=== PATIENT | male | born 1980 | race Caucasian/White ===

== ENCOUNTER 2017-08-13 17:50 | Inpatient (IN) | payer OTHER ==
[2017-08-13] MEDS: METHYLPREDNISOLONE 125 MG INJ IV (18:04)
[2017-08-13 18:13] LABS: AADO2 Arterial 101.6 mmHg (7.0-24.0); Allen Test ACCEPTAB; Arterial Base Excess -6.8 mmol/L (-3.0-3); Arterial Blood Gas Oxygen Sat 99.3 mmHG (95.0-98.0); Arterial COHb 0.3 % (0.0-3.0); Arterial Fraction of Oxyhgb 98.7 % (93.0-99.0); Arterial HCO3 19.1 mmol/L (22.0-26.0); Arterial MetHb 0.3 % (0.0-1.5); Arterial pCO2 39.9 mmhg (35-45); Blood Gas IEPAP 15/5; Blood Gas PS 10; MODE MASK - BIPAP; Site Left Radial
[2017-08-13] MEDS: IPRATROPIUM (NEB) 0.5 MG/2.5 ML AMP INH (18:32)
[2017-08-13] MEDS: ALBUTEROL 0.5% (NEB) 2.5 MG/0.5 ML AMP INH (18:32)
[2017-08-13 18:49] LABS: ADD MAN DIFF? NO
[2017-08-13 18:54] LABS: WHITE BLOOD COUNT 7.8 10^3/ul (4.8-10.8)
[2017-08-13 18:54] LABS: BASOPHILS % 0.4 % (0.0-2.0); EOSINOPHILS # 0.1 10^3/ul (0.0-0.5); EOSINOPHILS % 0.6 % (0.0-7.0); HEMATOCRIT 39.9 % (42.0-52.0); HEMOGLOBIN 13.5 g/dl (14.0-18.0); LYMPHOCYTES # 3.3 10^3/ul (0.8-2.9); LYMPHOCYTES % 42.5 % (15.0-51.0); MEAN CORPUSCULAR HEMOGLOBIN 32.3 pg (29.0-33.0); MEAN CORPUSCULAR HGB CONC 33.8 g/dl (32.0-37.0); MEAN CORPUSCULAR VOLUME 95.5 fl (82.0-101.0); MEAN PLATELET VOLUME 12.1 fl (7.4-10.4); MONOCYTE # 0.7 10^3/ul (0.3-0.9); MONOCYTES % 9.4 % (0.0-11.0); NEUTROPHIL # 3.6 10^3/ul (1.6-7.5); NEUTROPHILS % 46.7 % (39.0-77.0); PLATELET COUNT 136 10^3/UL (140-415); RED BLOOD COUNT 4.18 10^6/ul (4.70-6.10); RED CELL DISTRIBUTION WIDTH 12.3 % (11.5-14.5)
[2017-08-13] MEDS: NITROGLYCERIN (SL) 0.4 MG TAB SL (18:57)
[2017-08-13] MEDS: SOD CHLORIDE 0.9% 1,000 ML IV ×2 (19:40→23:50)
[2017-08-13] MEDS: morphine 4 MG/ML VIAL IV (19:46)
[2017-08-13 20:12] LABS: ALANINE AMINOTRANSFERASE 50 IU/L (13-69); ALBUMIN 4.4 g/dl (3.3-4.9); ALBUMIN/GLOBULIN RATIO 1.33; ALKALINE PHOSPHATASE 99 IU/L (42-121); ANION GAP 18 (8-16); ASPARTATE AMINO TRANSFERASE 48 IU/L (15-46); BILIRUBIN,INDIRECT 0.4 mg/dl (0-1.1); BILIRUBIN,TOTAL 0.4 mg/dl (0.2-1.3); BLOOD UREA NITROGEN 19 mg/dl (7-20); CALCIUM 9.3 mg/dl (8.4-10.2); CARBON DIOXIDE 24 mmol/L (21-31); CHLORIDE 106 mmol/L (97-110); CREATININE 0.87 mg/dl (0.61-1.24); GLUCOSE 121 mg/dl (70-220); POTASSIUM 3.9 mmol/L (3.5-5.1); SODIUM 144 mmol/L (135-144); TOTAL PROTEIN 7.7 g/dl (6.1-8.1)
[2017-08-13 20:21] LABS: B-TYPE NATRIURETIC PEPTIDE 96 PG/ML (0-125)
[2017-08-13 20:26] LABS: LACTIC ACID 3.1 mmol/L (0.5-2.0)
[2017-08-13 20:26] LABS: TROPONIN-I 0.328 ng/ml (0.00-0.12)
[2017-08-13 20:32] LABS: INR 1.03; PARTIAL THROMBOPLASTIN TIME 23.4 Sec (25.0-35.0); PROTIME 13.6 Sec (11.9-14.9); PT RATIO 1.1
[2017-08-13] MEDS: NITROGLYCERIN 2% 1 GM OINT PKT TD (20:47)
[2017-08-13] MEDS: ASPIRIN 325 MG TAB PO (20:47)
[2017-08-13 21:04] LABS: D-DIMER 5993.19 ng/ml (<460)
[2017-08-13 21:43] LABS: LACTIC ACID 1.3 mmol/L (0.5-2.0)
[2017-08-13 21:56] LABS: CREATINE KINASE 167 IU/L (23-200)
[2017-08-13] MEDS ORDERED: HEPARIN 1000 UNITS/ML 10 ML INJ IV (22:00)
[2017-08-13] MEDS ORDERED: ACETAMINOPHEN 325 MG TAB PO (22:00)
[2017-08-13] MEDS ORDERED: ONDANSETRON 4 MG INJ IV ×2 (22:00→23:30)
[2017-08-13 22:06] LABS: CK INDEX 1.3
[2017-08-13 22:13] LABS: ADD MAN DIFF? NO
[2017-08-13 22:16] LABS: WHITE BLOOD COUNT 10.3 10^3/ul (4.8-10.8)
[2017-08-13 22:16] LABS: ABNORMAL IP MESSAGE 1; BASOPHILS % 0.1 % (0.0-2.0); HEMATOCRIT 36.5 % (42.0-52.0); HEMOGLOBIN 12.5 g/dl (14.0-18.0); LYMPHOCYTES # 0.5 10^3/ul (0.8-2.9); LYMPHOCYTES % 4.9 % (15.0-51.0); MEAN CORPUSCULAR HEMOGLOBIN 31.5 pg (29.0-33.0); MEAN CORPUSCULAR HGB CONC 34.2 g/dl (32.0-37.0); MEAN CORPUSCULAR VOLUME 91.9 fl (82.0-101.0); MEAN PLATELET VOLUME 11.8 fl (7.4-10.4); MONOCYTE # 0.2 10^3/ul (0.3-0.9); MONOCYTES % 1.8 % (0.0-11.0); NEUTROPHIL # 9.6 10^3/ul (1.6-7.5); PLATELET COUNT 124 10^3/UL (140-415); POSITIVE DIFF @See below; RED BLOOD COUNT 3.97 10^6/ul (4.70-6.10); RED CELL DISTRIBUTION WIDTH 12.1 % (11.5-14.5)
[2017-08-13] MEDS: HEPARIN 25000 UNITS/250 ML 250 ML IV (22:24)
[2017-08-13] MEDS: HEPARIN 1000 UNITS/ML 10 ML INJ IV (22:24)
[2017-08-13 22:26] LABS: TROPONIN-I 0.551 ng/ml (0.00-0.12)
[2017-08-13 22:29] LABS: PROTIME 13.3 Sec (11.9-14.9)
[2017-08-13 23:00] LABS: PARTIAL THROMBOPLASTIN TIME 21.1 Sec (25.0-35.0)
[2017-08-13 23:28] LABS: LACTIC ACID 1.2 mmol/L (0.5-2.0)
[2017-08-13] MEDS ORDERED: NACL 0.9% 3 ML SYG IV (23:30)
[2017-08-13] MEDS ORDERED: DOCUSATE SODIUM 100 MG CAP PO (23:30)
[2017-08-14 03:52] LABS: CREATINE KINASE 183 IU/L (23-200)
[2017-08-14 04:06] LABS: CK INDEX 2.1
[2017-08-14 04:12] LABS: CK-MB 3.92 ng/ml (0.0-2.4); TROPONIN-I 0.424 ng/ml (0.00-0.12)
[2017-08-14] MEDS: morphine 2 MG INJ IV (05:13)
[2017-08-14 05:38] LABS: INR 1.46; PT RATIO 1.4
[2017-08-14 06:03] LABS: HEMOGLOBIN A1C 5.4 % (0-5.9)
[2017-08-14 06:15] LABS: ADD MAN DIFF? NO
[2017-08-14 06:16] LABS: PARTIAL THROMBOPLASTIN TIME > 180.0 Sec (25.0-35.0)
[2017-08-14 06:19] LABS: WHITE BLOOD COUNT 6.7 10^3/ul (4.8-10.8)
[2017-08-14 06:19] LABS: HEMATOCRIT 36.1 % (42.0-52.0); HEMOGLOBIN 12.2 g/dl (14.0-18.0); LYMPHOCYTES # 0.7 10^3/ul (0.8-2.9); MEAN CORPUSCULAR HEMOGLOBIN 31.4 pg (29.0-33.0); MEAN CORPUSCULAR HGB CONC 33.8 g/dl (32.0-37.0); MEAN PLATELET VOLUME 12.4 fl (7.4-10.4); MONOCYTE # 0.2 10^3/ul (0.3-0.9); MONOCYTES % 2.3 % (0.0-11.0); NEUTROPHIL # 5.7 10^3/ul (1.6-7.5); NEUTROPHILS % 86.1 % (39.0-77.0); PLATELET COUNT 140 10^3/UL (140-415); RED BLOOD COUNT 3.88 10^6/ul (4.70-6.10); RED CELL DISTRIBUTION WIDTH 12.1 % (11.5-14.5)
[2017-08-14 06:45] LABS: ALANINE AMINOTRANSFERASE 51 IU/L (13-69); ALBUMIN 4.3 g/dl (3.3-4.9); ALKALINE PHOSPHATASE 87 IU/L (42-121); ANION GAP 19 (8-16); ASPARTATE AMINO TRANSFERASE 42 IU/L (15-46); BILIRUBIN,INDIRECT 0.3 mg/dl (0-1.1); BILIRUBIN,TOTAL 0.3 mg/dl (0.2-1.3); BLOOD UREA NITROGEN 20 mg/dl (7-20); CALCIUM 8.7 mg/dl (8.4-10.2); CARBON DIOXIDE 22 mmol/L (21-31); CHLORIDE 102 mmol/L (97-110); CHOL/HDL RATIO 3.6 RATIO; CHOLESTEROL 161 mg/dl (100-200); CREATININE 0.67 mg/dl (0.61-1.24); GLUCOSE 276 mg/dl (70-220); HDL CHOLESTEROL 44 mg/dl (28-63); LDL CHOLESTEROL,CALCULATED 108 mg/dl; MAGNESIUM 1.9 mg/dl (1.7-2.5); POTASSIUM 4.2 mmol/L (3.5-5.1); SODIUM 139 mmol/L (135-144); TOTAL PROTEIN 7.6 g/dl (6.1-8.1); TRIGLYCERIDES 47 mg/dl (0-149)
[2017-08-14 07:15] LABS: THYROID STIMULATING HORMONE 0.738 MIU/L (0.465-4.680)
[2017-08-14 08:25] LABS: CREATINE KINASE 212 IU/L (23-200)
[2017-08-14] MEDS: ASPIRIN 81 MG TAB PO (08:28)
[2017-08-14 08:36] LABS: CK INDEX 2.4
[2017-08-14 08:37] LABS: CK-MB 5.01 ng/ml (0.0-2.4); INR 1.08; PROTIME 14.1 Sec (11.9-14.9); PT RATIO 1.1; TROPONIN-I 0.306 ng/ml (0.00-0.12)
[2017-08-14 08:44] LABS: PARTIAL THROMBOPLASTIN TIME 77.3 Sec (25.0-35.0)
[2017-08-14 10:30] LABS: PARTIAL THROMBOPLASTIN TIME 69.3 Sec (25.0-35.0)
[2017-08-14 11:55] LABS: B-TYPE NATRIURETIC PEPTIDE 95 PG/ML (0-125)
[2017-08-14] MEDS: FUROSEMIDE 40 MG INJ IV (12:37)
[2017-08-14 16:18] LABS: INR 0.97
[2017-08-14 16:19] LABS: PARTIAL THROMBOPLASTIN TIME 47.7 Sec (25.0-35.0)
[2017-08-14] MEDS: HEPARIN 25000 UNITS/250 ML 250 ML IV (18:19)
[2017-08-14] MEDS: HEPARIN 1000 UNITS/ML 10 ML INJ IV (18:37)
[2017-08-14] MEDS: NITROGLYCERIN (SL) 0.4 MG TAB SL (20:57)
[2017-08-14] MEDS: TICAGRELOR 90 MG TABLET PO (21:00)
[2017-08-14] MEDS: ATORVASTATIN 40 MG TAB PO (21:00)
[2017-08-14 22:54] LABS: INR 1.08; PROTIME 14.1 Sec (11.9-14.9); PT RATIO 1.1
[2017-08-14] MEDS: HYDROmorphONE 0.5 MG/0.5 ML SYG IV (23:11)
[2017-08-14 23:42] LABS: PARTIAL THROMBOPLASTIN TIME > 180.0 Sec (25.0-35.0)
[2017-08-15 01:16] LABS: PARTIAL THROMBOPLASTIN TIME 130.4 Sec (25.0-35.0)
[2017-08-15 02:21] LABS: PARTIAL THROMBOPLASTIN TIME 65.7 Sec (25.0-35.0)
[2017-08-15] MEDS: HEPARIN 25000 UNITS/250 ML 250 ML IV ×3 (04:07→19:10)
[2017-08-15] MEDS: ASPIRIN 81 MG TAB PO (08:53)
[2017-08-15] MEDS: NITROGLYCERIN (SL) 0.4 MG TAB SL ×2 (08:54→20:51)
[2017-08-15] MEDS: TICAGRELOR 90 MG TABLET PO ×2 (08:57→20:03)
[2017-08-15] MEDS: morphine 2 MG INJ IV ×3 (09:00→23:08)
[2017-08-15 10:21] LABS: PARTIAL THROMBOPLASTIN TIME 46.2 Sec (25.0-35.0)
[2017-08-15] MEDS: HEPARIN 1000 UNITS/ML 10 ML INJ IV (10:45)
[2017-08-15] MEDS: LEVALBUTEROL (NEB) 1.25 MG/0.5 ML AMP HHN (11:16)
[2017-08-15] MEDS: FUROSEMIDE 40 MG INJ IV (17:51)
[2017-08-15] MEDS: ATORVASTATIN 40 MG TAB PO (20:01)
[2017-08-16 00:10] LABS: PARTIAL THROMBOPLASTIN TIME 63.8 Sec (25.0-35.0)
[2017-08-16 07:28] LABS: ADD MAN DIFF? NO
[2017-08-16 07:36] LABS: BASOPHILS % 0.2 % (0.0-2.0); EOSINOPHILS # 0.1 10^3/ul (0.0-0.5); EOSINOPHILS % 1.4 % (0.0-7.0); HEMATOCRIT 34.8 % (42.0-52.0); HEMOGLOBIN 11.9 g/dl (14.0-18.0); LYMPHOCYTES # 1.9 10^3/ul (0.8-2.9); LYMPHOCYTES % 32.8 % (15.0-51.0); MEAN CORPUSCULAR HEMOGLOBIN 31.3 pg (29.0-33.0); MEAN CORPUSCULAR HGB CONC 34.2 g/dl (32.0-37.0); MEAN CORPUSCULAR VOLUME 91.6 fl (82.0-101.0); MEAN PLATELET VOLUME 11.7 fl (7.4-10.4); MONOCYTE # 0.7 10^3/ul (0.3-0.9); MONOCYTES % 12.7 % (0.0-11.0); NEUTROPHIL # 3.1 10^3/ul (1.6-7.5); NEUTROPHILS % 52.6 % (39.0-77.0); PLATELET COUNT 140 10^3/UL (140-415); RED CELL DISTRIBUTION WIDTH 12.1 % (11.5-14.5)
[2017-08-16 07:36] LABS: WHITE BLOOD COUNT 5.8 10^3/ul (4.8-10.8)
[2017-08-16 07:51] LABS: ANION GAP 13 (8-16); BLOOD UREA NITROGEN 21 mg/dl (7-20); CALCIUM 8.8 mg/dl (8.4-10.2); CARBON DIOXIDE 29 mmol/L (21-31); CHLORIDE 101 mmol/L (97-110); CREATININE 0.76 mg/dl (0.61-1.24); GLUCOSE 103 mg/dl (70-220); MAGNESIUM 1.8 mg/dl (1.7-2.5); PHOSPHORUS 4.5 mg/dl (2.5-4.9); POTASSIUM 3.8 mmol/L (3.5-5.1); SODIUM 139 mmol/L (135-144)
[2017-08-16] MEDS: TICAGRELOR 90 MG TABLET PO (08:28)
[2017-08-16] MEDS: ASPIRIN 81 MG TAB PO (08:31)
[2017-08-16] MEDS: HEPARIN 25000 UNITS/250 ML 250 ML IV (08:31)
[2017-08-16] MEDS: morphine 2 MG INJ IV ×3 (08:32→17:25)
[2017-08-16] MEDS: LEVALBUTEROL (NEB) 1.25 MG/0.5 ML AMP HHN (14:53)
[2017-08-16 16:08] LABS: PARTIAL THROMBOPLASTIN TIME 80.6 Sec (25.0-35.0)
[2017-08-16] MEDS: FUROSEMIDE 20 MG INJ IV (16:36)
[2017-08-16] MEDS: APIXABAN 5 MG TABLET PO (20:10)
[2017-08-16] MEDS: ATORVASTATIN 40 MG TAB PO (20:10)
[2017-08-17] MEDS: morphine 2 MG INJ IV ×3 (00:21→20:23)
[2017-08-17 08:05] LABS: ADD MAN DIFF? NO
[2017-08-17 08:14] LABS: BASOPHILS % 0.4 % (0.0-2.0); EOSINOPHILS # 0.2 10^3/ul (0.0-0.5); EOSINOPHILS % 3.2 % (0.0-7.0); HEMATOCRIT 36.8 % (42.0-52.0); HEMOGLOBIN 12.6 g/dl (14.0-18.0); LYMPHOCYTES # 1.6 10^3/ul (0.8-2.9); LYMPHOCYTES % 27.9 % (15.0-51.0); MEAN CORPUSCULAR HEMOGLOBIN 31.7 pg (29.0-33.0); MEAN CORPUSCULAR HGB CONC 34.2 g/dl (32.0-37.0); MEAN CORPUSCULAR VOLUME 92.7 fl (82.0-101.0); MEAN PLATELET VOLUME 11.5 fl (7.4-10.4); MONOCYTE # 0.6 10^3/ul (0.3-0.9); MONOCYTES % 10.9 % (0.0-11.0); NEUTROPHIL # 3.3 10^3/ul (1.6-7.5); NEUTROPHILS % 57.1 % (39.0-77.0); PLATELET COUNT 158 10^3/UL (140-415); RED BLOOD COUNT 3.97 10^6/ul (4.70-6.10); RED CELL DISTRIBUTION WIDTH 11.8 % (11.5-14.5)
[2017-08-17 08:14] LABS: WHITE BLOOD COUNT 5.7 10^3/ul (4.8-10.8)
[2017-08-17] MEDS: APIXABAN 5 MG TABLET PO ×2 (08:46→20:22)
[2017-08-17] MEDS: ASPIRIN 81 MG TAB PO (08:47)
[2017-08-17 08:56] LABS: ANION GAP 13 (8-16); BLOOD UREA NITROGEN 19 mg/dl (7-20); CALCIUM 9.2 mg/dl (8.4-10.2); CARBON DIOXIDE 32 mmol/L (21-31); CHLORIDE 99 mmol/L (97-110); CREATININE 0.75 mg/dl (0.61-1.24); GLUCOSE 98 mg/dl (70-220); POTASSIUM 4.2 mmol/L (3.5-5.1); SODIUM 140 mmol/L (135-144)
[2017-08-17] MEDS: ATORVASTATIN 40 MG TAB PO (20:21)
[2017-08-18] MEDS: morphine 2 MG INJ IV ×3 (04:37→21:42)
[2017-08-18] MEDS: ASPIRIN 81 MG TAB PO (07:55)
[2017-08-18] MEDS: APIXABAN 5 MG TABLET PO ×2 (07:57→22:54)
[2017-08-18] MEDS: ATORVASTATIN 40 MG TAB PO (22:54)
[2017-08-19] MEDS: morphine 2 MG INJ IV ×4 (01:47→21:20)
[2017-08-19] MEDS: APIXABAN 5 MG TABLET PO ×2 (08:26→21:19)
[2017-08-19] MEDS: ASPIRIN 81 MG TAB PO (08:26)
[2017-08-19] MEDS: ATORVASTATIN 40 MG TAB PO (21:16)
[2017-08-20] MEDS: morphine 2 MG INJ IV ×3 (07:29→18:46)
[2017-08-20] MEDS: ASPIRIN 81 MG TAB PO (09:03)
[2017-08-20] MEDS: APIXABAN 5 MG TABLET PO ×2 (09:03→20:46)
[2017-08-20] MEDS: SODIUM CHLORIDE 0.45% 500 ML BAG IV* (18:51)
[2017-08-20] MEDS: ATORVASTATIN 40 MG TAB PO (20:48)
[2017-08-21] MEDS: morphine 2 MG INJ IV ×4 (00:09→21:27)
[2017-08-21 07:02] LABS: ANION GAP 15 (8-16); BLOOD UREA NITROGEN 18 mg/dl (7-20); CALCIUM 9.3 mg/dl (8.4-10.2); CARBON DIOXIDE 29 mmol/L (21-31); CHLORIDE 100 mmol/L (97-110); CREATININE 0.73 mg/dl (0.61-1.24); GLUCOSE 104 mg/dl (70-220); SODIUM 140 mmol/L (135-144)
[2017-08-21] MEDS: ASPIRIN 81 MG TAB PO (08:22)
[2017-08-21] MEDS: APIXABAN 5 MG TABLET PO ×2 (08:22→20:19)
[2017-08-21] MEDS: ACETAMINOPHEN 325 MG TAB PO (18:26)
[2017-08-21] MEDS: ATORVASTATIN 40 MG TAB PO (20:19)
[2017-08-21] MEDS: BISACODYL (EC) 5 MG TAB PO (20:20)
[2017-08-22] MEDS: morphine 2 MG INJ IV ×2 (04:35→11:15)
[2017-08-22 08:25] LABS: ANION GAP 16 (8-16); BLOOD UREA NITROGEN 17 mg/dl (7-20); CALCIUM 9.4 mg/dl (8.4-10.2); CARBON DIOXIDE 30 mmol/L (21-31); CHLORIDE 99 mmol/L (97-110); CREATININE 0.73 mg/dl (0.61-1.24); GLUCOSE 102 mg/dl (70-220); POTASSIUM 4.1 mmol/L (3.5-5.1); SODIUM 141 mmol/L (135-144)
[2017-08-22] MEDS: ASPIRIN 81 MG TAB PO (08:50)
[2017-08-22] MEDS: APIXABAN 5 MG TABLET PO ×2 (08:50→20:57)
[2017-08-22] MEDS: HYDROCODONE/APAP (5/325) TAB PO ×2 (18:34→22:16)
[2017-08-22] MEDS: ATORVASTATIN 40 MG TAB PO (20:57)
[2017-08-23] MEDS: ASPIRIN 81 MG TAB PO (08:46)
[2017-08-23] MEDS: APIXABAN 5 MG TABLET PO (08:46)
[2017-08-23] MEDS: HYDROCODONE/APAP (5/325) TAB PO (09:55)
== END 2017-08-23 13:05 | disposition home or self-care (01) | DRG 280 ==
LOC: E/R 17:50 → TEL 21:44
DX: I21.A1 Myocardial infarction type 2 (principal); I26.99 Other pulmonary embolism without acute cor pulmonale; J96.02 Acute respiratory failure with hypercapnia; Z68.44 Body mass index [BMI] 60.0-69.9, adult; E87.2 Acidosis; J81.1 Chronic pulmonary edema; E66.01 Morbid (severe) obesity due to excess calories; R06.00 Dyspnea, unspecified; I10 Essential (primary) hypertension; G47.33 Obstructive sleep apnea (adult) (pediatric); R53.81 Other malaise; R34 Anuria and oliguria; R79.1 Abnormal coagulation profile; Z71.3 Dietary counseling and surveillance
CPT/HCPCS: 36415; 36600; 71045; 76775; 80048; 80053; 80061; 82550; 82553; 82803; 83036; 83605; 83735; 83880; 84100; 84443; 84484; 85025; 85378; 85610; 85730; 87040; 93005; 93306; 93970; 94640; 94660; 94664; 96374; 96375; 96376; 97110; 97162; 97530; 99291-25

== ENCOUNTER 2018-02-06 16:59 | Inpatient (IN) | payer OTHER ==
[2018-02-06 17:24] LABS: ADD MAN DIFF? NO
[2018-02-06 17:27] LABS: WHITE BLOOD COUNT 5.7 10^3/ul (4.8-10.8)
[2018-02-06 17:27] LABS: BASOPHILS % 0.2 % (0.0-2.0); EOSINOPHILS % 0.5 % (0.0-7.0); HEMATOCRIT 38.4 % (42.0-52.0); HEMOGLOBIN 13.2 g/dl (14.0-18.0); LYMPHOCYTES # 2.2 10^3/ul (0.8-2.9); MEAN CORPUSCULAR HEMOGLOBIN 31.7 pg (29.0-33.0); MEAN CORPUSCULAR HGB CONC 34.4 g/dl (32.0-37.0); MEAN CORPUSCULAR VOLUME 92.3 fl (82.0-101.0); MEAN PLATELET VOLUME 12.3 fl (7.4-10.4); MONOCYTE # 0.7 10^3/ul (0.3-0.9); MONOCYTES % 11.4 % (0.0-11.0); NEUTROPHIL # 2.8 10^3/ul (1.6-7.5); NEUTROPHILS % 49.7 % (39.0-77.0); PLATELET COUNT 207 10^3/UL (140-415); RED BLOOD COUNT 4.16 10^6/ul (4.70-6.10); RED CELL DISTRIBUTION WIDTH 12.2 % (11.5-14.5)
[2018-02-06] MEDS: ASPIRIN 81 MG TAB PO (17:45)
[2018-02-06 17:48] LABS: INR 0.93; PROTIME 12.5 Sec (11.9-14.9)
[2018-02-06 17:56] LABS: ANION GAP 14 (8-16); BLOOD UREA NITROGEN 23 mg/dl (7-20); CALCIUM 9.8 mg/dl (8.4-10.2); CARBON DIOXIDE 22 mmol/L (21-31); CHLORIDE 107 mmol/L (97-110); D-DIMER 500.67 ng/ml (<460); GLUCOSE 109 mg/dl (70-220); POTASSIUM 3.8 mmol/L (3.5-5.1); SODIUM 139 mmol/L (135-144)
[2018-02-06 18:08] LABS: B-TYPE NATRIURETIC PEPTIDE 108 PG/ML (0-125); TROPONIN-I < 0.012 ng/ml (0.000-0.120)
[2018-02-06] MEDS: morphine 4 MG/ML VIAL IV (18:32)
[2018-02-06] MEDS ORDERED: ACETAMINOPHEN 325 MG TAB PO (20:00)
[2018-02-06] MEDS ORDERED: NACL 0.9% 3 ML SYG IV (20:00)
[2018-02-06] MEDS ORDERED: DOCUSATE SODIUM 100 MG CAP PO (20:00)
[2018-02-06] MEDS ORDERED: ONDANSETRON 4 MG INJ IV (20:00)
[2018-02-06] MEDS ORDERED: BISACODYL (EC) 5 MG TAB PO (20:00)
[2018-02-06] MEDS: LISINOPRIL 20 MG TAB PO (21:06)
[2018-02-06] MEDS: FUROSEMIDE 40 MG INJ IV (21:06)
[2018-02-06] MEDS: ATORVASTATIN 40 MG TAB PO (21:06)
[2018-02-06] MEDS: morphine 2 MG INJ IV (21:07)
[2018-02-06] MEDS ORDERED: LORAZEPAM 2 MG INJ IV ×2 (22:30)
[2018-02-06 23:34] LABS: CREATINE KINASE 75 IU/L (23-200)
[2018-02-06 23:47] LABS: CK INDEX 0.7; CK-MB 0.49 ng/ml (0.0-2.4); TROPONIN-I < 0.012 ng/ml (0.000-0.120)
[2018-02-07] MEDS: NITROGLYCERIN (SL) 0.4 MG TAB SL ×5 (00:39→11:53)
[2018-02-07] MEDS: morphine 4 MG/ML VIAL IV ×2 (00:58→01:05)
[2018-02-07] MEDS ORDERED: HYDROmorphONE 0.5 MG/0.5 ML SYG IV (01:05)
[2018-02-07] MEDS: HYDROmorphONE 1 MG/ML SYG IV ×4 (01:32→16:25)
[2018-02-07] MEDS: ENOXAPARIN 100 MG/ML SYG SC ×2 (03:25→15:38)
[2018-02-07 06:08] LABS: ADD MAN DIFF? NO
[2018-02-07 06:15] LABS: BASOPHILS % 0.4 % (0.0-2.0); EOSINOPHILS # 0.1 10^3/ul (0.0-0.5); EOSINOPHILS % 1.6 % (0.0-7.0); HEMATOCRIT 37.2 % (42.0-52.0); HEMOGLOBIN 12.4 g/dl (14.0-18.0); LYMPHOCYTES # 2.1 10^3/ul (0.8-2.9); LYMPHOCYTES % 40.3 % (15.0-51.0); MEAN CORPUSCULAR HEMOGLOBIN 31.6 pg (29.0-33.0); MEAN CORPUSCULAR HGB CONC 33.3 g/dl (32.0-37.0); MEAN CORPUSCULAR VOLUME 94.7 fl (82.0-101.0); MEAN PLATELET VOLUME 12.7 fl (7.4-10.4); MONOCYTE # 0.6 10^3/ul (0.3-0.9); MONOCYTES % 11.2 % (0.0-11.0); NEUTROPHIL # 2.4 10^3/ul (1.6-7.5); NEUTROPHILS % 46.5 % (39.0-77.0); PLATELET COUNT 178 10^3/UL (140-415); RED BLOOD COUNT 3.93 10^6/ul (4.70-6.10); RED CELL DISTRIBUTION WIDTH 12.4 % (11.5-14.5)
[2018-02-07 06:15] LABS: WHITE BLOOD COUNT 5.2 10^3/ul (4.8-10.8)
[2018-02-07 06:43] LABS: ALANINE AMINOTRANSFERASE 51 IU/L (13-69); ALBUMIN 3.3 g/dl (3.3-4.9); ALBUMIN/GLOBULIN RATIO 1.13; ALKALINE PHOSPHATASE 70 IU/L (42-121); ANION GAP 13 (8-16); ASPARTATE AMINO TRANSFERASE 36 IU/L (15-46); BLOOD UREA NITROGEN 22 mg/dl (7-20); CALCIUM 9.2 mg/dl (8.4-10.2); CARBON DIOXIDE 27 mmol/L (21-31); CHLORIDE 104 mmol/L (97-110); CHOLESTEROL 139 mg/dl (100-200); CREATININE 0.86 mg/dl (0.61-1.24); GLUCOSE 102 mg/dl (70-220); HDL CHOLESTEROL 34 mg/dl (28-63); LDL CHOLESTEROL,CALCULATED 87 mg/dl; MAGNESIUM 2.1 mg/dl (1.7-2.5); POTASSIUM 3.6 mmol/L (3.5-5.1); SODIUM 140 mmol/L (135-144); TOTAL PROTEIN 6.2 g/dl (6.1-8.1); TRIGLYCERIDES 90 mg/dl (0-149)
[2018-02-07 06:44] LABS: CK-MB 0.42 ng/ml (0.0-2.4); TROPONIN-I < 0.012 ng/ml (0.000-0.120)
[2018-02-07 07:02] LABS: CK INDEX 0.7; CREATINE KINASE 63 IU/L (23-200)
[2018-02-07] MEDS: LISINOPRIL 20 MG TAB PO ×2 (08:34→20:14)
[2018-02-07] MEDS: morphine 2 MG INJ IV (13:34)
[2018-02-07] MEDS: ALBUTEROL/IPRATROPIUM (NEB) 3 ML AMP HHN ×2 (13:43→20:10)
[2018-02-07 14:00] LABS: HEMOGLOBIN A1C 5.3 % (0-5.9)
[2018-02-07] MEDS: FUROSEMIDE 40 MG INJ IV (16:26)
[2018-02-07] MEDS: ATORVASTATIN 40 MG TAB PO (20:13)
[2018-02-07] MEDS: ACETAMINOPHEN 325 MG TAB PO (20:13)
[2018-02-07] MEDS: morphine LIQ (10 MG/5 ML) CUP PO (20:46)
[2018-02-08] MEDS: HYDROmorphONE 2 MG TAB PO ×4 (00:35→23:00)
[2018-02-08] MEDS: CYCLOBENZAPRINE 10 MG TAB PO (01:09)
[2018-02-08] MEDS: ONDANSETRON 4 MG TAB PO (01:09)
[2018-02-08] MEDS: ALBUTEROL/IPRATROPIUM (NEB) 3 ML AMP HHN ×4 (01:50→19:27)
[2018-02-08] MEDS: ENOXAPARIN 100 MG/ML SYG SC ×2 (02:24→14:47)
[2018-02-08 07:00] LABS: ANION GAP 13 (8-16); BLOOD UREA NITROGEN 22 mg/dl (7-20); CARBON DIOXIDE 28 mmol/L (21-31); CHLORIDE 101 mmol/L (97-110); CREATININE 0.87 mg/dl (0.61-1.24); GLUCOSE 97 mg/dl (70-220); POTASSIUM 3.5 mmol/L (3.5-5.1); SODIUM 138 mmol/L (135-144)
[2018-02-08] MEDS: morphine LIQ (10 MG/5 ML) CUP PO ×3 (09:32→20:11)
[2018-02-08] MEDS: FUROSEMIDE 40 MG INJ IV (09:35)
[2018-02-08] MEDS: LISINOPRIL 20 MG TAB PO ×2 (09:35→20:10)
[2018-02-08] MEDS: ATORVASTATIN 40 MG TAB PO (20:10)
[2018-02-09] MEDS: morphine LIQ (10 MG/5 ML) CUP PO ×4 (02:25→20:01)
[2018-02-09] MEDS: CYCLOBENZAPRINE 10 MG TAB PO (02:28)
[2018-02-09] MEDS: ENOXAPARIN 100 MG/ML SYG SC ×2 (02:33→14:56)
[2018-02-09] MEDS: ALBUTEROL/IPRATROPIUM (NEB) 3 ML AMP HHN ×4 (02:35→19:55)
[2018-02-09] MEDS: LISINOPRIL 20 MG TAB PO ×2 (08:01→20:02)
[2018-02-09] MEDS: FUROSEMIDE 40 MG INJ IV (08:02)
[2018-02-09] MEDS: HYDROmorphONE 2 MG TAB PO (11:43)
[2018-02-09] MEDS: GABAPENTIN 100 MG CAP PO ×2 (17:25→20:01)
[2018-02-09] MEDS: ATORVASTATIN 40 MG TAB PO (20:01)
[2018-02-10] MEDS: ALBUTEROL/IPRATROPIUM (NEB) 3 ML AMP HHN ×3 (01:55→15:01)
[2018-02-10] MEDS: morphine LIQ (10 MG/5 ML) CUP PO ×2 (02:23→06:38)
[2018-02-10] MEDS: ENOXAPARIN 100 MG/ML SYG SC (02:36)
[2018-02-10] MEDS: GABAPENTIN 100 MG CAP PO ×2 (09:18→12:58)
[2018-02-10] MEDS: LISINOPRIL 20 MG TAB PO (09:19)
[2018-02-10] MEDS: FUROSEMIDE 40 MG INJ IV (09:19)
[2018-02-10 09:36] LABS: TROPONIN-I < 0.012 ng/ml (0.000-0.120)
[2018-02-10] MEDS: ACETAMINOPHEN 325 MG TAB PO (10:28)
== END 2018-02-10 15:40 | disposition home or self-care (01) | DRG 292 ==
LOC: E/R 16:59 → MS1 02-09 22:04 → TEL 19:52
DX: I11.0 Hypertensive heart disease with heart failure (principal); Z68.45 Body mass index [BMI] 70 or greater, adult; I50.33 Acute on chronic diastolic (congestive) heart failure; E66.01 Morbid (severe) obesity due to excess calories; Z71.3 Dietary counseling and surveillance; E78.5 Hyperlipidemia, unspecified; I25.10 Atherosclerotic heart disease of native coronary artery without angina pectoris; I25.2 Old myocardial infarction; G43.909 Migraine, unspecified, not intractable, without status migrainosus; Z86.711 Personal history of pulmonary embolism
CPT/HCPCS: 36415; 71045; 80048; 80053; 80061; 82550; 82553; 83036; 83735; 83880; 84443; 84484; 85025; 85378; 85610; 93005; 93306; 93970; 94640; 94664; 96374; 97162; 99285-25

== ENCOUNTER 2018-06-04 00:06 | Emergency (ER) | payer OTHER ==
[2018-06-04 01:03] LABS: ADD MAN DIFF? NO
[2018-06-04] MEDS: KETOROLAC 15 MG INJ IV (01:05)
[2018-06-04 01:06] LABS: WHITE BLOOD COUNT 4.9 10^3/ul (4.8-10.8)
[2018-06-04 01:06] LABS: BASOPHILS % 0.4 % (0.0-2.0); EOSINOPHILS # 0.1 10^3/ul (0.0-0.5); EOSINOPHILS % 1.8 % (0.0-7.0); HEMATOCRIT 41.2 % (42.0-52.0); HEMOGLOBIN 13.8 g/dl (14.0-18.0); LYMPHOCYTES # 1.9 10^3/ul (0.8-2.9); LYMPHOCYTES % 38.8 % (15.0-51.0); MEAN CORPUSCULAR HEMOGLOBIN 31.1 pg (29.0-33.0); MEAN CORPUSCULAR HGB CONC 33.5 g/dl (32.0-37.0); MEAN CORPUSCULAR VOLUME 92.8 fl (82.0-101.0); MEAN PLATELET VOLUME 11.7 fl (7.4-10.4); MONOCYTE # 0.5 10^3/ul (0.3-0.9); MONOCYTES % 10.5 % (0.0-11.0); NEUTROPHIL # 2.4 10^3/ul (1.6-7.5); NEUTROPHILS % 48.3 % (39.0-77.0); PLATELET COUNT 197 10^3/UL (140-415); RED BLOOD COUNT 4.44 10^6/ul (4.70-6.10); RED CELL DISTRIBUTION WIDTH 11.9 % (11.5-14.5)
[2018-06-04 01:12] LABS: ALANINE AMINOTRANSFERASE 28 IU/L (13-69); ALBUMIN 4.6 g/dl (3.3-4.9); ALBUMIN/GLOBULIN RATIO 1.27; ALKALINE PHOSPHATASE 104 IU/L (42-121); ANION GAP 19 (5-13); ASPARTATE AMINO TRANSFERASE 29 IU/L (15-46); BILIRUBIN,INDIRECT 0.6 mg/dl (0-1.1); BILIRUBIN,TOTAL 0.6 mg/dl (0.2-1.3); BLOOD UREA NITROGEN 24 mg/dl (7-20); CALCIUM 10.2 mg/dl (8.4-10.2); CARBON DIOXIDE 21 mmol/L (21-31); CHLORIDE 102 mmol/L (97-110); CREATININE 0.95 mg/dl (0.61-1.24); Estimated GFR > 60 mL/min (>60); GLUCOSE 105 mg/dl (70-220); LIPASE 71 U/L (23-300); POTASSIUM 4.1 mmol/L (3.5-5.1); SODIUM 142 mmol/L (135-144); TOTAL PROTEIN 8.2 g/dl (6.1-8.1)
[2018-06-04 01:13] LABS: D-DIMER 284.89 ng/ml (<460)
[2018-06-04 01:23] LABS: B-TYPE NATRIURETIC PEPTIDE 64 PG/ML (0-125); TROPONIN-I < 0.012 ng/ml (0.000-0.120)
== END 2018-06-04 02:40 | disposition home or self-care (01) ==
LOC: E/R 00:06
DX: R07.9 Chest pain, unspecified (principal); I10 Essential (primary) hypertension; E66.9 Obesity, unspecified; I25.2 Old myocardial infarction; F17.210 Nicotine dependence, cigarettes, uncomplicated; I25.10 Atherosclerotic heart disease of native coronary artery without angina pectoris; Z79.01 Long term (current) use of anticoagulants
CPT/HCPCS: 36415; 71045; 80053; 83690; 83880; 84484; 85025; 85378; 93005; 96374; 99285-25